=== PATIENT | female | born 1995 | race Hispanic/Latino ===

== ENCOUNTER 2018-06-21 08:35 | Emergency (ER) | payer OTHER ==
[2018-06-21 08:50] VITALS: BP 132/75
[2018-06-21 09:04] LABS: Basophils % (Auto) 0.3 % (0.0-1.8); Eosinophils # (Auto) 0.1 K/mm3 (0.0-0.4); Eosinophils % (Auto) 0.9 % (0.0-4.3); Hematocrit 38.5 % (30.3-42.9); Hemoglobin 13.6 gm/dl (10.1-14.3); Lymphocytes # (Auto) 1.4 K/mm3 (1.2-5.4); Lymphocytes % (Auto) 19.8 % (13.4-35.0); Mean Corpuscular HGB Conc 35 % (30-34); Mean Corpuscular Volume 96 fl (79-97); Monocytes # (Auto) 0.2 K/mm3 (0.0-0.8); Monocytes % (Auto) 3.5 % (0.0-7.3); Platelet Count 237 K/mm3 (140-440); Red Blood Count 4.01 M/mm3 (3.65-5.03); Red Cell Distribution Width 13.4 % (13.2-15.2)
[2018-06-21 09:53] LABS: Bacteria,Urine 1+ /HPF (Negative); Bilirubin,Urine NEG (Negative); Blood,Urine NEG (Negative); Color,Urine Amber (Yellow); Mucus,Urine 3+ /HPF; Urobilinogen,Urine < 2.0 mg/dL (<2.0)
--- NOTE | 2018-06-21 10:55 | Ultrasound Report ---
OB ULTRASOUND History vaginal bleeding and cramping during . Technique: Transabdominal ultrasound with Doppler interrogation. Comparison: 05/14/18. Gestation: Single Position: Variable Amniotic Fluid: Within normal limits Placenta: Posterior fundal Placental Grade: 0 Heart Rate: 148 BPM BPD: 3.4 cm = 16 w 4 d HC: 12.4 cm = 16 w 2 d AC: 9.8 cm = 15 w 6 d FL: 1.9 cm = 15 w 4 d HC/AC Ratio: 1.3 Cephalic Index: 88.6 Estimated Weight: 136 grams Clinical age = 16 w 2 d EDC: 12/04/18 US Gest. Age = 16 w 1 d EDC: 12/05/18 IMPRESSION: Viable, single intrauterine as described. No acute abnormality is detected.
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
== END 2018-06-21 11:38 | disposition home or self-care (01) ==
LOC: ED 08:35
DX: O23.42 Unspecified infection of urinary tract in pregnancy, second trimester (principal); O99.512 Diseases of the respiratory system complicating pregnancy, second trimester; Z3A.16 16 weeks gestation of pregnancy
CPT/HCPCS: 36415; 76805; 81001; 84702; 85025; 86900; 86901